=== PATIENT | male | born 1955 ===

== ENCOUNTER 2016-11-18 11:04 | Emergency (ER) | payer OTHER ==
[~2016-11-18] VITALS: Ht 180.3 cm; Wt 93.0 kg
[~2016-11-18 11:04] MED LIST: CIPRO 500MG TA500 MG PO
[2016-11-18 11:10] VITALS: BP 114/75
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
[2016-11-18] MEDS ORDERED: CYCLOBENZAPRINE10 M1 PO (11:48)
[2016-11-18] MEDS ORDERED: NAPROSYN500 M1 PO (11:48)
[2016-11-18] MEDS ORDERED: GABAPENTIN300 M2 PO (12:01)
== END 2016-11-18 12:00 ==
LOC: ERH 11:04
DX: S13.4XXA Sprain of ligaments of cervical spine, initial encounter (principal); V49.40XA Driver injured in collision with unspecified motor vehicles in traffic accident, initial encounter; Y92.481 Parking lot as the place of occurrence of the external cause